=== PATIENT | male | born 1960 | race Two or more races ===

== ENCOUNTER 2020-10-22 09:32 | Emergency (ER) | payer OTHER ==
[~2020-10-22] VITALS: Ht 167.6 cm; Wt 93.4 kg
== END 2020-10-22 17:17 | disposition home or self-care (01) ==
LOC: ER 09:32
DX: N39.0 Urinary tract infection, site not specified (principal); R10.31 Right lower quadrant pain

== ENCOUNTER 2020-10-25 11:00 | Outpatient (CLI) | payer OTHER | END 2020-10-25 11:17 | disposition home or self-care (01) | LOC: SONOGRAMA 11:00 | DX: N50.819 Testicular pain, unspecified (principal) ==